=== PATIENT | female | born 1955 | race African-American/Black ===

== ENCOUNTER 2022-04-08 12:43 | Emergency (ER) | payer OTHER ==
[2022-04-08 13:17] VITALS: BP 130/76; PULSE 70; RESP 18; TEMP 98.5; BMI 25.8
[2022-04-08] MEDS ORDERED: ACETAMINOPHEN 325 MG TABLET (FP) PO ONE (13:30)
[2022-04-08] MEDS ORDERED: ACETAMINOPHEN 325 MG TABLET (FP) ONE (13:44)
== END 2022-04-08 16:30 | disposition home or self-care (01) ==
LOC: FER 12:43
DX: S09.90XA Unspecified injury of head, initial encounter (principal); S13.4XXA Sprain of ligaments of cervical spine, initial encounter; W01.0XXA Fall on same level from slipping, tripping and stumbling without subsequent striking against object, initial encounter; Y04.0XXA Assault by unarmed brawl or fight, initial encounter
CPT/HCPCS: 70450-TC; 72125-TC; 72128-TC; 72131-TC; 73030-TC-RT-FY; 73090-TC-RT-FY; 99285-25